=== PATIENT | female | born 1950 | race Caucasian/White ===

== ENCOUNTER 2025-05-19 09:49 | Outpatient (AMB) | payer MEDICARE, SELFPAY ==
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
[2025-05-19 10:03] VITALS: BP 116/74; PULSE 63; RESP 14; TEMP 36.8; O2SAT 97; BMI 34.1
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
== END 2025-05-19 10:50 | disposition home or self-care (01) ==
PROVIDERS: PCP Internal Medicine; Visit Provider Internal Medicine
DX: G57.93 Unspecified mononeuropathy of bilateral lower limbs (principal); M81.0 Age-related osteoporosis without current pathological fracture; M25.512 Pain in left shoulder; G89.29 Other chronic pain

== ENCOUNTER → 2025-05-19 09:49 | Outpatient (BNVA) | payer MEDICARE, SELFPAY | PROVIDERS: PCP Internal Medicine; Visit Provider Internal Medicine | DX: Z13.31 Encounter for screening for depression (principal); Z13.30 Encounter for screening examination for mental health and behavioral disorders, unspecified; G57.93 Unspecified mononeuropathy of bilateral lower limbs; M81.0 Age-related osteoporosis without current pathological fracture; M25.512 Pain in left shoulder; G89.29 Other chronic pain; M54.2 Cervicalgia; Z87.891 Personal history of nicotine dependence | CPT/HCPCS: 96127; 99202 ==

== ENCOUNTER 2025-05-19 11:24 | Outpatient (REF) | payer MEDICARE, SELFPAY ==
[2025-05-19 14:57] LABS: Estimated Average Glucose 111 mg/dL; Hemoglobin A1c % 5.5 % (<6.0)
[2025-05-19 15:02] LABS: Iron 83 mcg/dL (30-160); Magnesium 2.1 mg/dL (1.6-2.6); Percent Iron Saturation 25 % (15-50); Total Iron Binding Capacity 326 mcg/dL (228-428); Unsaturated Iron Binding 243 ug/dL
[2025-05-19 15:34] LABS: Folate 11.1 ng/mL (> or = 4.0); Vitamin B12 324 pg/mL (200-900)
== END 2025-05-19 11:25 | disposition home or self-care (01) ==
LOC: HO.WFDLDS 11:24
PROVIDERS: Visit Provider Internal Medicine
DX: G57.90 Unspecified mononeuropathy of unspecified lower limb (principal); M54.2 Cervicalgia; Z13.1 Encounter for screening for diabetes mellitus
CPT/HCPCS: 36415; 82607; 82746; 83036; 83540; 83735

== ENCOUNTER 2025-06-27 08:57 | Outpatient (AMB) | payer MEDICARE, SELFPAY ==
--- OUTSIDE RECORDS SUMMARY | 2025-06-27 09:10 | XMS_ITS | Encounter Summary ---
Author Organization [facility] Address [address] [place] [address] Care Team Providers Care Internet Marketing Specialist Name Role Phone Physician, No Pcp Primary Care Provider Unavaila ble Encounter Details Date Type Department Care Team (Late st Contact Info) Description 12/17/2024 Lab Requisition [facility] - Main Lab [address] [place] [address] Francisco Nino MD [address] [place] [address] Benign essential microscopic hematuria Social History Tobacco Use Types Packs/Day Years Used Date Smoking Tobacco: Never Assessed Comments Unknown Sex and Gender Information Value Date Recorded Sex Assigned at Not on file Legal Sex Female 3:41 PM EST Gender Identity Not on file Sexual Orientation Not on file documented as of this encounter Plan of Treatment Not on file documented as of this encounter Procedures Procedure Name Priority Date/Time Associated Diagnosis Comments AP OUTSIDE CONSULT Routine 12/16/2024 12 :00 AM EST Benign essential microscopic hematuria documented in this encounter Results * Anatomic pathology outside consult (12/16/2024 12:00 AM EST) Addendum Results of UroVysion fluorescence in situ hybridization (FISH) testing: CEP3: Normal CEP7: Normal CEP17: Normal LSI 9p21: Normal Interpretation: Normal profile, see note Controls stained appropriately. Note: Only two aneuploid cells are present not meeting the 4 cells criteria needed to be considered abnormal. However, these 2 cells have irregular gains of CEP3, CEP7, and CEP17 which is not typical of simply dividing cells. Consideration of urine cytology with concurrent FISH is recommended. The results are intended as a screening device and should be interpreted in association with other clinical and pathological findings. 01/02/2025 5:26 PM [facility] Addendum electronically signed by Tania Cevallos MD on 01/02/2025 at 5:26 PM Final Diagnosis A. Urine, Voided, ([id number]): Atypical urothelial cells Note: Based upon the cytologic findings, UroVysion testing will be performed, the result to follow in an addendum. 01/02/2025 5:26 PM EST [facility] Clinical Information Benign essential microscopic hematuria R31.1 Urine cytology with reflex [facility]Vysion ([facility]) 01/02/2025 5:26 PM [facility] Gross Description A. Urine, Voided, ([id number]): Received is one ThinPrep slide for cytology. 01/02/2025 5:26 PM [facility] Disclaimer Unless otherwise specified, all tissue is 10% NB formalin fixed and paraffin embedded. Technical pathology services provided by [facility] at [address], [place] [address] (CLIA #[id number]/Mary Powell MD, Supervisor Dumping) 01/02/2025 5:26 PM [facility] Tissue Urine specimen from urethra / Unknown 12/16/2024 12/17/2024 3:48 PM EST us Francisco Nino MD LAB PATHOLOGY ORDERABLES Edited Result - Final [facility] [address] [place] [address], documented in this encounter Visit Diagnoses Diagnosis Benign essential microscopic hematuria documented in this encounter Care Teams Internet Marketing Specialist Relationship Specialty Start Date End Date Physician, No Pcp PCP - General 03/03/25 documented as of this encounter
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
--- OUTSIDE RECORDS SUMMARY | 2025-06-27 09:10 | XMS_ITS | Patient Health Record ---
Author Organization [facility] Address [address] [place] [address] Care Team Providers Care Parking Regulation Enforcement Officer Name Role Phone SAMARA ANDRADE, CESAR Primary Care Provider Jo aidaludwinGABRIELA Stearns Unavailable [phone] Allergies No Known Allergies Results Component Value Reference Range Notes Urinalysis Reviewed date:09/17/2024 02:47:49 PM Interpretation: Performing Lab: Notes/Report: NITRITE NEG PH 5.0 PROTEIN TR S.G 1.000 WBC POS GLUCOSE NEG KETONES NEG UROBILINOGEN NEG BILIRUBIN NEG BLOOD MOD Urine Culture, Routine-[id number] Reviewed date:09/19/2024 10:44:59 AM Interpretation: Performing Lab:[facility] [employer], [address], [place], Phone - [phone], Director [facility] Notes/Report: Urine Culture, Routine Final report Result 1 Culture shows less than 10,000 colony forming units of bacteria per milliliter of urine. This colony count is not generally considered to be clinically significant. PDF Report Reviewed date:09/19/2024 08:51:31 AM Interpretation: Performing Lab:[facility] [employer], [address], [place], Phone - [phone], Director - [facility] Notes/Report: Reason For Referral No Information [...] Status Risk Notes Problem Postmenopausal atrophic vaginitis (59919317) Postmenopausal atrophic vaginitis (N95.2) Active confirmed Problem COVID-19 (613287910) COVID-19 (U07.1) Active confirmed Vital Signs Temperature 97.3 degrees Fahrenheit 09/17/2024 Blood pressure diastolic 86 mm Hg 09/17/2024 Height 62.5 in 09/17/2024 Blood pressure systolic 124 mm Hg 09/17/2024 Weight 183 lbs 09/17/2024 BMI 32.93 kg/m2 09/17/2024 Encounters Encounter Location Date Provider Diagnosis [facility] [place] [address] [facility] [address] [address] 09/17/2024 GABRIELA CAGLE Frequency of micturition R35.0 ; Urgency of urination R39.15 and Postmenopausal atrophic vaginitis N95.2 [facility] [place] [address] [facility] [address] [address] 09/24/2024 GABRIELA CAGLE Assessments Encounter Date Diagnosis [...] End Date [employer] MEDICARE PPO [address] [place] [address] [id number] YEE HERNANDEZ Self - patient is the insured Medical (General) History Medical History History ICD Code Hypothyroidism, unspecified E03.9 COVID-19 U07.1 Surgical History Surgery Date(Month/Year) Melanoma 2014 Hospitalization History Reason Date(Month/Year) 1 Vaginal Deivery
--- NOTE | 2025-06-27 09:18 | A.OFFPC_ITS ---
Vital Signs 06/27/25 09:20 Height 5 ft 1.97 in Weight 183 lb 4 oz BMI 33.5 BP 116/82 Blood Pressure Location Rt brachial Position Sitting Respiration 14 Pulse 68 Pulse Source Pulse Oximeter Temp 98.1 F Temp Source Oral Pulse Oximetry (%) 98 Oxygen Delivery Method Room Air Intake Visit Reasons: 3 week cough Intake Note: Cough for three weeks. Ringing in both ears. Xray results. Dishwashing Machine Repairer Required: No Allergies Penicillins Allergy (Mild, Verified 06/27/25 09:19) vaginal yeast infection Tobacco use date assessed: 05/19/25 Dental Screening Dental Screen Date: 05/19/25 HPI HPI Comments History of Present Illness Details The patient is a 75 year old female with a past medical history of hyopthyroid, asthma, low vitamin d, bladder cancer for follow up Hypothyroid-On levothyroxine Asthma-On arnuity. Increase cough. Llxsciljiwlw-SEL-Jrldl 2025. [facility] Wants perhaps another opinion. Recommended reclast Cataract surgery 04/02/2025 right eye. Had V1 shingles. Waiting on left eye surgery-scheduled for the end of Jul. She had post operative vertigo, vision changes which have since resolved. MSK: Reports bilateral le neuropathy legs and foot. Unsure of labs. Low back sometimes painful but no acute injury etc. Chronic neck pain, spasm. Recent worsening left shoulder pain, Urologic-Follows with Dr Nino. Every 3 months follow up at present. She had one year history of urinary urgency prior to testing for baldder cancer. She was positive. She has cystoscopy with antineoplastic agent. BH: Relocated from [place]. one year later. Lost two sisters, had to put her dog down. Extremely stress, anxious-wants to start the prozac sent but wants to wait until after left eye surgery. She had an episode of vertigo and vision changes when she tried zoloft in the past which was similar to her recent post operative complications from eye surgery Mammo-05/2024 Colonoscopy-01/18/2022 ROS see HPI PHYSICAL EXAM: GENERAL: Alert and oriented x 3. NAD EYES: EOMI. Anicteric. HENT: Moist mucous membranes. No scleral icterus. No cervical lymphadenopathy. LUNGS: Clear to auscultation bilaterally. CARDIOVASCULAR: Regular rate and rhythm. No murmur. No JVD. ABDOMEN: Soft, non-tender +bs EXTREMITIES: No edema. Non-tender. SKIN: No rashes or lesions. Warm. NEUROLOGIC: No focal neurological deficits. CN II-XII grossly intact PSYCHIATRIC: Cooperative. Appropriate mood and affect [facility] Surgical History Hx of cholecystectomy Family History Mother Lung cancer Depression Sister Depression COPD (chronic obstructive pulmonary disease) Diabetes Brother Heart attack Father Alcohol abuse Cardiovascular disease ESRD (end stage renal disease) HTN (hypertension) Other Chronic mental illness Social History Housing: House Alcohol intake: current Patient Tobacco Use Status: Former Tobacco user Cigarette Packs Per Day: 1 Years Smoked: 15 e-Cigarette/Vaping Use: Never Used Second Hand Smoke Exposure: Yes (as a child) Cognitive needs: No Hearing needs: No Vision needs: Yes (glasses, just had cataracts) Questionnaire Thrive Questionnaire Date Thrive assessed: 05/19/25 I am a: Patient What is your living situation today?: I have a steady place to live Within the past 12 months, did the food you bought not last and you didn't have the money to get more?: Never true Within the past 12 months, did you worry whether your food would run out before you got money to buy more?: Never true Do you have trouble paying for medicines?: No Do you have trouble getting transportation to medical appointments?: No Do you have trouble paying your heating and electricity bill?: No Do you have trouble taking care of your child, family member or friend?: No Do you have trouble with day-to-day activities such as bathing, preparing meals, shopping, managing finances, etc.?: No Are you currently unemployed and looking for a job?: No Are you interested in more education?: No Please select the resources that you would like help with: None Currently or been in a relationship where the following occur: Controlled Emotionally THRIVE Score: 1 AUDIT C Alcohol Use Questionnaire (AUDIT-C) 2. How many drinks containing alcohol do you have on a typical day when you are drinking?: 1 or 2 3. How often do you have six or more drinks on one occasion?: Never Total Score: 0 TIGRE-7 AMB Questionnaire TIGRE-7 Date TIGRE - 7 assessed: 05/19/25 Source: Developed by Drs. Nael Elias, Lilo De La Garza, Jaskaran Bryson and colleagues, with an educational russell from [employer]. Physical exam (Primary Care) Vital Signs: Last Vital Signs Temp 98.1 F 06/27/25 09:20 Pulse 68 06/27/25 09:20 Resp 14 06/27/25 09:20 BP 116/82 06/27/25 09:20 Pulse Ox 98 06/27/25 09:20 Oxygen Delivery Method Room Air 06/27/25 09:20 BMI result Body Mass Index 33.5 Tobacco/Smoking Status: Tobacco use Status Tobacco use date assessed 05/19/25 06/27/25 09:24 Patient Tobacco Use Status Former Tobacco user 06/27/25 09:24 e-Cigarette/Vaping Use Never Used 06/27/25 09:24 Thrive Assessment: Date of Thrive Assessment Date Thrive assessed 05/19/25 06/27/25 09:24 Currently or been in a relationship where the following occur: Controlled Emotionally Coding Level of Care Code Est Pt Level 4 (18749) Diagnoses Neck pain M54.2 Chronic left shoulder pain M25.512; G89.29 Chronicity: chronic 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 Laterality: bilateral Recurrent major depressive disorder, in partial remission F33.41 Depression Type: major depressive disorder Major depression recurrence: recurrent Active/Remission status: in partial remission Assessment & Plan Assessment & Plan (1) Neck pain: Code(s): M54.2 - Cervicalgia Category: Medical (2) Left shoulder pain: Code(s): M25.512 - Pain in left shoulder Category: Medical Qualifiers: Chronicity: chronic Qualified Code(s): M25.512 - Pain in left shoulder; G89.29 - Other chronic pain (3) Lower extremity neuropathy: Code(s): G57.90 - Unspecified mononeuropathy of unspecified lower limb Category: Medical Qualifiers: Laterality: bilateral Qualified Code(s): G57.93 - Unspecified mononeuropathy of bilateral lower limbs (4) Depression: Code(s): F32.A - Depression, unspecified Qualifiers: Depression Type: major depressive disorder Major depression recurrence: recurrent Active/Remission status: in partial remission Qualified Code(s): F33.41 - Major depressive disorder, recurrent, in partial remission Plan Depression-continue therapy. She will start prozac following eye surgery Asthma-continue current medications. Azithromycin sent hypothyroid-continue levothyroxine Orders: Referrals Orthopedics Referral G89.29 - Other chronic pain, M25.512 - Pain in left shoulder, M54.2 - Cervicalgia Podiatry Referral M79.673 - Pain in unspecified foot Medications: New azithromycin For 250 mg dose pack: take 500 mg today (day 1), then 250 mg for 4 days (days 2-5) PO 6 tabs 0RF azithromycin For 250 mg dose pack: take 500 mg today (day 1), then 250 mg for 4 days (days 2-5) PO 6 tabs 0RF
[2025-06-27 09:20] VITALS: BP 116/82; PULSE 68; RESP 14; TEMP 36.7; O2SAT 98; BMI 33.5
== END 2025-06-27 09:59 | disposition home or self-care (01) ==
LOC: HO.HMCFM 08:58
PROVIDERS: PCP Internal Medicine; Visit Provider Internal Medicine
DX: M54.2 Cervicalgia (principal); M25.512 Pain in left shoulder; G89.29 Other chronic pain; G57.93 Unspecified mononeuropathy of bilateral lower limbs; F33.41 Major depressive disorder, recurrent, in partial remission

== ENCOUNTER → 2025-06-27 08:57 | Outpatient (BNVA) | payer MEDICARE, SELFPAY | PROVIDERS: PCP Internal Medicine; Visit Provider Internal Medicine | DX: M54.2 Cervicalgia (principal); M25.512 Pain in left shoulder; G89.29 Other chronic pain; G57.93 Unspecified mononeuropathy of bilateral lower limbs; F33.41 Major depressive disorder, recurrent, in partial remission | CPT/HCPCS: 99212 ==

== ENCOUNTER 2025-07-18 12:45 | Outpatient (REF) | payer MEDICARE, SELFPAY ==
[2025-07-18 18:46] LABS: Alanine Aminotransferase 11 U/L (0-31); Albumin Level 4.2 g/dL (3.5-5.0); Alkaline Phosphatase 77 U/L (39-117); Anion Gap 12 (12-20); Aspartate Amino Transferase 18 U/L (5-31); Blood Urea Nitrogen 13 mg/dL (9-16); Calcium 9.0 mg/dL (8.4-10.2); Carbon Dioxide 27 mmol/L (22-29); Chloride 101 mmol/L (96-108); Estimated Glomerular Filt Rate > 60; Potassium 4.6 mmol/L (3.3-5.1); Sodium 135 mmol/L (135-145); Total Protein 6.9 g/dL (6.5-8.0)
[2025-07-18 18:57] LABS: Folate 9.3 ng/mL (> or = 4.0); Vitamin B12 705 pg/mL (200-900)
== END 2025-07-18 12:46 | disposition home or self-care (01) ==
LOC: HO.WFDLDS 12:45
PROVIDERS: PCP Internal Medicine; Visit Provider Nurse Practitioner Family
DX: H93.13 Tinnitus, bilateral (principal); F33.9 Major depressive disorder, recurrent, unspecified; F33.0 Major depressive disorder, recurrent, mild; J45.20 Mild intermittent asthma, uncomplicated; M81.0 Age-related osteoporosis without current pathological fracture; E03.9 Hypothyroidism, unspecified; Z79.51 Long term (current) use of inhaled steroids; Z79.890 Hormone replacement therapy; Z79.899 Other long term (current) drug therapy
CPT/HCPCS: 36415; 80053; 82306; 82607; 82746; 84443; 96160; 99212

== ENCOUNTER 2025-07-18 12:45 | Outpatient (AMB) | payer MEDICARE, SELFPAY ==
--- NOTE | 2025-07-18 12:51 | A.OFFPC_ITS ---
Vital Signs 07/18/25 12:56 Height 5 ft 1.97 in Weight 187 lb BMI 34.2 BP 134/80 Blood Pressure Location Lt brachial Position Sitting Respiration 14 Pulse 63 Pulse Source Pulse Oximeter Temp 97.8 F Temp Source Temporal Artery Scan Pulse Oximetry (%) 97 Oxygen Delivery Method Room Air Intake Visit Reasons: Ringing in the ears Intake Note: Shabnam presents in the office today for bilateral ringing in the ears. Allergies Penicillins Allergy (Mild, Verified 07/18/25 13:43) vaginal yeast infection Medication List - Last Reconciled 07/18/25 by Karine Baeza, COMMERCIAL ENERGY AUDITOR-BC Arnuity Ellipta 100 mcg/actuation (fluticasone furoate) 1 inh inhalation DAILY NS cholecalciferol (vitamin D3) 50 mcg PO DAILY fluoxetine (Prozac) 10 mg PO DAILY levothyroxine 50 mcg PO DAILY Ventolin HFA 90 mcg/actuation (albuterol sulfate) 2 puffs inhalation Q6H PRN NS vitamin B complex 1 tab PO DAILY Tobacco use date assessed: 07/18/25 Fall risk assessment: No Falls in past year Last assessed Fall Risk: 07/18/25 Dental Screening Dental Screen Date: 07/18/25 Did you have a dental visit in the last 12 months?: Yes Did you have a dental problem in the last 6 months where you did not have access to dental care?: No Was dental information given to patient?: Patient has dentist HPI HPI Comments History of Present Illness Details 75 year old female with hyopthyroid, ast hma, low vitamin d, bladder cancer History of Present Illness - The patient is a 75-year-old female pr esenting with tinnitus and chronic cough. - Tinnitus for approximately two months, with increased pressure in bilat ears noted; both ears affected. - Cough persisting for several months, n oted especially at night, non- productive. Does not think this is asthma related, feels like PND - Recent cataract surgery followed by daniel ngles behind the R eye, leading to visual disturbances and dizziness. This has affected her mood. - On Prozac for depression since two wee ks with no noted improvement. Denies SI/HI. Does not want to increase, fears side effects. - Reports fatigue, sleep disturbances; a ssociated with tinnitus and vision issues. - Vitamin D3 supplementation due to oste oporosis; not routinely taking NSAIDs, but has tried meloxicam recently. - Hypothyroid, no recent thyroid labs av ail. - Labs 04/2025 reviewed. Review of Systems - HEENT: Reports tinnitus, visual distur bances, postnasal drip. Denies hearing loss. - Respiratory: Reports chronic cough, es pecially at night. - Neurological: Reports dizziness. - Psychiatric: Reports depression, fatig ue, disturbed sleep. - Endocrine: Denies recent thyroid funct ion test. - General: Reports feeling generally unw ell. Physical Exam General: Well developed, well nourished, appears stated age Head: Normocephalic, atraumatic. Eyes: Pupils are equal, round and reactive to light and accommodation. Conjunctivae are clear. Ears: TM intact, scant clouding noted, EAC bilat, hearing normal Nose: Turbinates pale and edematous, no sinus tenderness Pharynx: Uvula midline, no exudate or thrush, mild PND, no ac adenopathy Lungs: Clear to auscultation bilaterally. No rales, rhonchi or wheeze noted. Good air flow in all cavazos. Heart: Regular rate and rhythm. No murmurs, click, rubs or gallops are noted. Psych: Mood and affect appropriate, Tearful at times. Results Pending Discussion Notes I discussed with the patient that the tinnitus may be contributed by several factors, including her recent use of meloxicam, although this started after the tinnitus began. I recommended a hearing exam and the patient should expect contact from the medical center to arrange an appointment. I advised checking blood work to evaluate thyroid function, vitamin D, and B12 levels, among others, to assess contributing factors for the patient?s symptoms. We discussed starting a nasal spray, Flonase, to address any possible fluid in the ears or postnasal drip. I encouraged continued use of Prozac, guiding her on the typical timeline of 6-8 weeks for therapeutic effects. A follow-up in six weeks has been recommended, and the patient preferred to continue her care at [facility] for pharmaceutical needs. I reminded the patient of utilizing the patient portal for lab results and questions. Patient was given time to ask questions. All questions were answered to their satisfaction. Assessment and Plan 1. Tinnitus - Hearing exam recommended. - Start Flonase nasal spray. - Monitor effects of meloxicam. Reports she will only take this for 2 weeks then stop 2. Chronic Cough - Use Flonase for postnasal drip. cont i nhalers 3. Depression - Continue Prozac; reassess in six weeks . 5. Osteoporosis/ Hypothyroid - Continue vitamin D3. - Lab tests for thyroid and vitamin stat us. Patient Instructions - Use Flonase nasal spray twice a day, m orning and evening. - Expect a call to schedule a hearing te st. - Continue Prozac; be patient as it may take 6-8 weeks to feel the effects. - Get lab work done today for thyroid an d vitamin levels. - Follow up in six weeks or sooner if pr oblems arise. - Contact immediately if any severe symp toms occur. Consent Patient was informed and verbally consented to the use of an ambient scribe for clinic note documentation during this visit. Total time spent caring for the patient today was 41 minutes. This includes time spent before the visit reviewing the chart, time spent during the visit, and time spent after the visit on documentation, reviewing laboratory results, diagnostic imaging, medications, performing a medically necessary evaluation, counseling on diagnoses, care coordination, ordering appropriate tests, ordering appropriate medications, review of tests performed by other providers, reporting test results with the patient, communication with other healthcare providers. [facility] Surgical History Hx of cholecystectomy Family History Mother Lung cancer Depression Sister Depression COPD (chronic obstructive pulmonary disease) Diabetes Brother Heart attack Father Alcohol abuse Cardiovascular disease ESRD (end stage renal disease) HTN (hypertension) Other Chronic mental illness Social History (Updated 07/18/25 @ 12:56 by Tania Burger MA) Housing: House Alcohol intake: current Patient Tobacco Use Status: Former Tobacco user Cigarette Packs Per Day: 1 Years Smoked: 15 e-Cigarette/Vaping Use: Never Used Second Hand Smoke Exposure: Yes (as a child) service: No Current occupational status: retired Current occupational exposures/hazards: No Cognitive needs: No Hearing needs: No Vision needs: Yes (glasses, just had cataracts) Questionnaire Thrive Questionnaire Date Thrive assessed: 05/19/25 I am a: Patient What is your living situation today?: I have a steady place to live Within the past 12 months, did the food you bought not last and you didn't have the money to get more?: Never true Within the past 12 months, did you worry whether your food would run out before you got money to buy more?: Never true Do you have trouble paying for medicines?: No Do you have trouble getting transportation to medical appointments?: No Do you have trouble paying your heating and electricity bill?: No Do you have trouble taking care of your child, family member or friend?: No Do you have trouble with day-to-day activities such as bathing, preparing meals, shopping, managing finances, etc.?: No Are you currently unemployed and looking for a job?: No Are you interested in more education?: No Please select the resources that you would like help with: None Currently or been in a relationship where the following occur: Controlled Emotionally THRIVE Score: 1 TIGRE-7 AMB Questionnaire TIGRE-7 Date TIGRE - 7 assessed: 05/19/25 Source: Developed by Drs. Nael Elias, Lilo De La Garza, Jaskaran Bryson and colleagues, with an educational russell from [employer]. ACT Questionnaire In the past 4 weeks, how much of the time did your asthma keep you from getting as much done at work, school or at home?: None of the time During the past 4 weeks, how often have you had shortness of breath?: Not at all During the past 4 weeks, how often did your asthma symptoms wake you up at night or earlier than usual in the morning?: Not at all During the past 4 weeks, how often have you had to use your rescue inhaler or nebulizer medication?: Not at all How would you rate your asthma control during the past 4 weeks?: Completely controlled ACT Interpretation: Negative Score: 25 Physical exam (Primary Care) Vital Signs: Last Vital Signs Temp 97.8 F 07/18/25 12:56 Pulse 63 07/18/25 12:56 Resp 14 07/18/25 12:56 BP 134/80 07/18/25 12:56 Pulse Ox 97 07/18/25 12:56 Oxygen Delivery Method Room Air 07/18/25 12:56 BMI result Body Mass Index 34.2 Tobacco/Smoking Status: Tobacco use Status Tobacco use date assessed 07/18/25 07/18/25 12:59 Patient Tobacco Use Status Former Tobacco user 07/18/25 12:59 e-Cigarette/Vaping Use Never Used 07/18/25 12:59 Thrive Assessment: Date of Thrive Assessment Date Thrive assessed 05/19/25 07/18/25 12:59 Currently or been in a relationship where the following occur: Controlled Emotionally Coding Level of Care Code Est Pt Level 5 (61591) Complex EM visit Add On G2211 Diagnoses Tinnitus, bilateral H93.13 Mild episode of recurrent major depressive disorder F33.0 Major depression episode severity: mild Acquired hypothyroidism E03.9 Hypothyroidism type: acquired Mild intermittent asthma in adult without complication J45.20 Osteoporosis, unspecified osteoporosis type, unspecified pathological fracture presence M81.0 Osteoporosis type: unspecified Presence of current pathological fracture: unspecified Additional Codes Asthma Control Questionnaire - ACT Interpretation: Negative ([id number]) Assessment & Plan Assessment & Plan (1) Tinnitus, bilateral: Code(s): H93.13 - Tinnitus, bilateral Category: Medical (2) MDD (major depressive disorder), recurrent episode: Code(s): F33.9 - Major depressive disorder, recurrent, unspecified Category: Medical Qualifiers: Major depression episode severity: mild Qualified Code(s): F33.0 - Major depressive disorder, recurrent, mild (3) Hypothyroid: Code(s): E03.9 - Hypothyroidism, unspecified Category: Medical Qualifiers: Hypothyroidism type: acquired Qualified Code(s): E03.9 - Hypothyroidism, unspecified (4) Mild intermittent asthma in adult without complication: Code(s): J45.20 - Mild intermittent asthma, uncomplicated Category: Medical (5) Osteoporosis: Code(s): M81.0 - Age-related osteoporosis without current pathological fracture Category: Medical Qualifiers: Osteoporosis type: unspecified Presence of current pathological fracture: unspecified Qualified Code(s): M81.0 - Age-related osteoporosis without current pathological fracture Plan . Orders: Orders Vitamin B12 and Folate Today E03.9 - Hypothyroidism, unspecified, F33.9 - Major depressive disorder, recurrent, unspecified, H93.13 - Tinnitus, bilateral, M81.0 - Age-related osteoporosis without current pathological fracture Comprehensive Met. Panel Today E03.9 - Hypothyroidism, unspecified, F33.9 - Major depressive disorder, recurrent, unspecified, H93.13 - Tinnitus, bilateral, M81.0 - Age-related osteoporosis without current pathological fracture TSH reflex Free T4 Today E03.9 - Hypothyroidism, unspecified, F33.9 - Major depressive disorder, recurrent, unspecified, H93.13 - Tinnitus, bilateral, M81.0 - Age-related osteoporosis without current pathological fracture Vitamin D 25-OH Total Today E03.9 - Hypothyroidism, unspecified, F33.9 - Major depressive disorder, recurrent, unspecified, H93.13 - Tinnitus, bilateral, M81.0 - Age-related osteoporosis without current pathological fracture Medications: New meloxicam 7.5 mg PO DAILY 14 tabs 0RF fluticasone propionate 50 mcg/actuation administer into each nostril 1 spray intranasal BID 16 grams 12RF fluticasone propionate 50 mcg/actuation administer into each nostril 1 spray intranasal BID 16 grams 12RF Patient Instructions: Patient Instructions - Use Flonase nasal spray twice a day, morning and evening. - Expect a call to schedule a hearing test. - Continue Prozac; be patient as it may take 6-8 weeks to feel the effects. - Get lab work done today for thyroid and vitamin levels. - Follow up in six weeks or sooner if problems arise. - Contact immediately if any severe symptoms occur.
[2025-07-18 12:56] VITALS: BP 134/80; PULSE 63; RESP 14; TEMP 36.6; O2SAT 97; BMI 34.2
--- OUTSIDE RECORDS SUMMARY | 2025-07-18 13:14 | XMS_ITS | Encounter Summary ---
Author Organization [facility] Address [address] [place] [address] Care Team Providers Care Title I Assistant Name Role Phone Physician, No Pcp Primary Care Provider Unavaila ble Encounter Details Date Type Department Care Team (Late st Contact Info) Description 02/05/2025 Lab Requisition [facility] - Main Lab [address] [facility] [place] [address] Francisco Nino MD [address] [facility] [address] [place] [address] Gross hematuria Social History Tobacco Use Types Packs/Day [...] Associated Diagnosis Comments AP OUTSIDE CONSULT Routine 01/30/2025 12 :00 AM EDT Gross hematuria documented in this encounter Results * Anatomic pathology outside consult (01/30/2025 12:00 AM EDT) Final Diagnosis A. Urine, Voided, ([id number]): -ATYPICAL UROTHELIAL CELLS SUSPICIOUS FOR HIGH-GRADE UROTHELIAL CARCINOMA.. Results of UroVysion fluorescence in situ hybridization (FISH) testing: CEP3: Normal CEP7: Normal CEP17: Normal LSI 9p21: Normal Interpretation: Normal profile Controls stained appropriately. Note: The results are intended as a screening device and should be interpreted in association with other clinical and pathological findings. 02/11/2025 5:[address] [facility] Clinical Information Gross hematuria R31.0 Urine Cytology/FISH (now) 02/11/2025 5:49 PM EDT [facility] Gross Description A. Urine, Voided, ([id number]): Received one ThinPrep slide for cytology and one ThinPrep slide for UroVysion FISH 02/11/2025 5:49 PM EDT [facility] Disclaimer Unless otherwise specified, all tissue is 10% NB formalin fixed and paraffin embedded. Technical pathology services provided by [facility] [address] [facility] [address] [place] [address] (CLIA #[id number]/Mary Powell MD, Window Systems Administrator) 02/11/2025 5:49 PM EDT [facility] Tissue Urine specimen from urethra / Unknown 01/30/2025 02/05/2025 11:59 AM EDT us Francisco Nino MD LAB PATHOLOGY ORDERABLES Final Result [facility] [address] [place] [address], documented in this encounter Visit Diagnoses Diagnosis Gross hematuria documented in this encounter Care Teams Title I Assistant Relationship Specialty Start Date End Date Physician, No Pcp PCP - General 03/03/25 documented as of this encounter
--- OUTSIDE RECORDS SUMMARY | 2025-07-18 13:14 | XMS_ITS | Continuity of Care Document ---
Author Organization [facility] Address [address] [facility] [address] [place] [address] Phone [phone] Care Team Providers Care Veterans Contact Representative Name Role Phone Dada Giang MD Care Team Information Rec eiver [phone] Problems Active Problems Provider Date Osteoporosis PAULETTE [...] Medications SIG Qnty Indications Ordering Provider Date [id number] Tablets Francisco Nino MD Arnuity Brzidfm473bln/Act Aerosol Dada Giang MD [id number] Tablets Unknown Levothyroxine Eycryd92gyh Tablets Dada Giang MD Vital Signs Date [...] D deficiency has been defined by the [place] of [employer] and an Endocrine Society practice guideline as a level of serum 25-OH vitamin D less than 20 ng/mL (1,2). The Endocrine Society went on to further define vitamin D insufficiency as a level between 21 and 29 ng/mL (2). 1. IOM ([place] of [employer]). 2010. Dietary reference intakes for [...] measured NTx value is <or=38 nM BCE/mM BARREL BRIDGE ASSEMBLER, or NTx has decreased >or=30% from baseline.[1] [...]
--- OUTSIDE RECORDS SUMMARY | 2025-07-18 13:14 | XMS_ITS | Patient Health Record ---
Author Organization [facility] Address [address] [facility] [facility] [address] [place] [address] Care Team Providers Care Mold Burner Name Role Phone SAMARA ANDRADE, CESAR Primary Care Provider Jo aidaludwinGABRIELA Stearns Unavailable [phone] Allergies No Known Allergies Results Component Value Reference Range Notes PDF Report Reviewed date:09/19/2024 08:51:31 AM Interpretation: Performing Lab:[facility], [address], [address], [place], Phone - [phone], [facility] Notes/Report: Urine Culture, Routine-[id number] Reviewed date:09/19/2024 10:44:59 AM Interpretation: Performing Lab:[facility], [address], [address], [place], Phone - [phone], Director [facility] Notes/Report: Urine Culture, Routine Final report Result 1 Culture shows less than 10,000 colony forming units of bacteria per milliliter of urine. This colony count is not generally considered to be clinically significant. Urinalysis Reviewed date:09/17/2024 02:47:49 PM Interpretation: Performing Lab: Notes/Report: NITRITE NEG PH 5.0 PROTEIN TR S.G 1.000 WBC POS GLUCOSE NEG KETONES NEG UROBILINOGEN NEG BILIRUBIN NEG BLOOD MOD Reason For Referral No Information Medications Medication [...] Status Risk Notes Problem Postmenopausal atrophic vaginitis (N95.2) Active confirmed Problem COVID-19 ([id number]) COVID-19 (U07.1) Active confirmed Vital Signs Temperature 97.3 degrees Fahrenheit 09/17/2024 Blood pressure diastolic 86 mm Hg 09/17/2024 Height 62.5 in 09/17/2024 Blood pressure systolic 124 mm Hg 09/17/2024 Weight 183 lbs 09/17/2024 BMI 32.93 kg/m2 09/17/2024 Encounters Encounter Location Date Provider Diagnosis [facility] [address] [address] 09/17/2024 GABRIELA CAGLE Frequency of micturition R35.0 ; Urgency of urination R39.15 and Postmenopausal atrophic vaginitis N95.2 [facility] [address] [address] 09/24/2024 GABRIELA CAGLE Assessments Encounter Date Diagnosis [...] End Date BCBS MEDICARE PPO [address] [place] [address] [id number] YEE HERNANDEZ Self - patient is the insured Medical (General) History Medical History History ICD Code Hypothyroidism, unspecified E03.9 COVID-19 U07.1 Surgical History Surgery Date(Month/Year) Melanoma 2014 Hospitalization History Reason Date(Month/Year) 1 Vaginal Deivery
--- OUTSIDE RECORDS SUMMARY | 2025-07-18 13:14 | XMS_ITS | Encounter Summary ---
Author Organization [facility] Address [address] [place] [address] Care Team Providers Care Communication And Outreach Manager Name Role Phone Physician, No Pcp Primary Care Provider Unavaila ble Encounter Details Date Type Department Care Team (Late st Contact Info) Description 12/17/2024 Lab Requisition [facility] - Main Lab [address] [facility] [place] [address] Francisco Nino MD [address] [facility] [address] [place] [address] Benign essential microscopic hematuria Social [...] clinical and pathological findings. 01/02/2025 5:26 PM [facility] Addendum electronically signed by Tania Cevallos MD on 01/02/2025 at 5:26 PM Final Diagnosis A. Urine, Voided, ([id number]): Atypical urothelial cells Note: Based upon the cytologic findings, UroVysion testing will be performed, the result to follow in an addendum. 01/02/2025 5:26 PM EST [facility] Clinical Information Benign essential microscopic hematuria R31.1 Urine cytology with reflex UroVysion ([facility]) 01/02/2025 5:26 PM [facility] Gross Description A. Urine, Voided, ([id number]): Received is one ThinPrep slide for cytology. 01/02/2025 5:26 PM [facility] Disclaimer Unless otherwise specified, all tissue is 10% NB formalin fixed and paraffin embedded. Technical pathology services provided by [facility] at [address] [place] [address] (CLIA #[id number]/Mary Powell MD, Carton Forming Machine Tender) 01/02/2025 5:26 PM [facility] Tissue Urine specimen from urethra / Unknown 12/16/2024 12/17/2024 3:48 PM EST us Francisco Nino MD LAB PATHOLOGY ORDERABLES Edited Result - Final [facility] [address] [place] [address], documented in this encounter Visit Diagnoses Diagnosis Benign essential microscopic hematuria documented in this encounter Care Teams Communication And Outreach Manager Relationship Specialty Start Date End Date Physician, No Pcp PCP - General 03/03/25 documented as of this encounter
--- OUTSIDE RECORDS SUMMARY | 2025-07-18 13:14 | XMS_ITS | Clinical Summary ---
Author Organization [facility] Address [address] [address] Phone Care Team Providers Care Sorting Machine Operator Name Role Phone Dada Montesinos MD Primary Care Provider [phone] Allergies Active Allergy Reactions Criticality Noted Date Comments Penicillin 08/13/2024 Yeast Infections Medications levothyroxine (SYNTHROID, LEVOTHROID) 50 MCG tablet Take by mouth. 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 Not on flo e 08/14/2024 Are you concerned about learning? Not on file 08/14/2024 No 08/14/2024 No 08/14/2024 Digital Access Answer Date Recorded No 08/14/2024 No 08/14/2024 Reliable internet access at home? Not on file 08/14/2024 Device with a working camera? Not on file Comments Unknown Sex and Gender Information Value Date Recorded Sex Assigned at Not on file Legal Sex Female 4:40 PM EDT Gender Identity Not on file Sexual Orientation Not on file Last Filed Vital Signs Vital Sign Reading Time Taken Comments Blood Pressure 120/82 08/13/2024 5:08 PM EDT Pulse 67 08/13/2024 5:08 PM EDT Temperature 36.8 C (98.2 F) 08/13/2024 5:08 PM EDT Respiratory Rate 16 08/13/2024 5:08 PM EDT Oxygen Saturation 97% 08/13/2024 5:08 PM EDT Inhaled Oxygen Concentration - - Weight - - Height - - Body Mass Index - - Plan of Treatment Health Maintenance Due Date Last Done Comments Adult Td,Tdap Booster 1950 LIPID PANEL 1950 TSH LEVEL 1951 DEPRESSION SCREENING 1963 SMOKING Hx and SMOKELESS TOB ACCO SCREENING 02/04/1964 HEPATITIS C SCREENING 1969 MAMMOGRAM 1991 COLOGUARD 02/04/1996 COLONOSCOPY 02/04/1996 COLORECTAL CANCER SCREENING 02/04/1996 FIT TEST 02/04/1996 FOBT 02/04/1996 SIGMOIDOSCOPY 02/04/1996 VIRTUAL COLONOSCOPY 02/04/1996 ZOSTER VACCINES (1 of 2) 2001 RSV VACCINE (1 - Risk 60-74 years 1-dose series) 2011 OSTEOPOROSIS SCREENING INITI AL (ONE-TIME) 02/04/2016 PNEUMOCOCCAL VACCINES (50+ y ears) (2 of 2 - PCV) 08/31/2021 08/31/2020 COVID-19 VACCINE (1 - 2023-2 5 season) 2024 BLOOD PRESSURE 02/10/2025 08/13/2024 HEPATITIS A VACCINES Aged Out No long er eligible based on patient's age to complete this topic HIB VACCINES Aged Out No longer eligi ble based on patient's age to complete this topic MENINGOCOCCAL VACCINES (ACWY) Aged Out No longer eligible based on patient's age to complete this topic MENINGOCOCCAL VACCINES (B) Aged Out N o longer eligible based on patient's age to complete this topic Medical Devices Not on file Insurance BLUE [place]OSS [place] MEDICARE PPO BLUE REPLACEMENT MEDICARE PPO BLUE REPLACEMENT MEDICARE PPO BLUE [place] [address] [place] [address] MEDICARE PPO [place]UE [place] [address] [place] [address] MEDICARE PPO BLUE REPLACEMENT Care Teams Sorting Machine Operator Relationship Specialty Start Date End Date Dada Montesinos MD [address] [place] [id number] PCP - General Internal Medicine 08/13/24 Additional Source Comments The information contained in this document represents components of the legal health record. It is not the complete legal health record.[facility]
--- OUTSIDE RECORDS SUMMARY | 2025-07-18 13:14 | XMS_ITS | Encounter Summary ---
Author Organization [facility] Address [address] [place] [address] Care Team Providers Care Mechanical Engineering Draftsperson Name Role Phone Physician, No Pcp Primary Care Provider Unavaila ble Encounter Details Date Type Department Care Team (Late st Contact Info) Description 06/12/2025 Lab Requisition [facility] - Main Lab [address] [facility] [place] [address] Francisco Nino MD [address] [facility] [address] [place] [address] Personal history of malignant neoplasm of bladder Social History Tobacco Use Types Packs/Day Years [...] Procedure Name Priority Date/Time Associated Diagnosis Comments NON-GYNECOLOGIC CYTOLOGY Routine 06/05/2025 12:00 AM EDT Personal history of malignant neoplasm of bladder documented in this encounter Results * Non-gynecologic cytology (06/05/2025 12:00 AM EDT) Final Diagnosis A. Urine, Voided, [id number]: ATYPICAL UROTHELIAL CELLS PRESENT. Results of UroVysion fluorescence in situ hybridization (FISH) testing: CEP3: Normal CEP7: Normal CEP17: Normal LSI 9p21: Normal Interpretation: Normal profile Controls stained appropriately. Note: The results are intended as a screening device and should be interpreted in association with other clinical and pathological findings. 06/24/2025 11:02 AM EDT [facility] Specimen A Adequacy Satisfactory for evaluation 06/24/2025 11:02 AM EDT [facility] Clinical Information History of bladder neoplasm (malignant) Z85.51 Urine Cytology/FISH (now) 06/24/2025 11:02 AM EDT [facility] Gross Description A. Urine, Voided, [id number]: Received one ThinPrep slide for cytology and one ThinPrep slide for UroVysion FISH 06/24/2025 11:02 AM EDT [facility] Disclaimer Unless otherwise specified, all tissue is 10% NB formalin fixed and paraffin embedded. Technical pathology services provided by [facility] at [address] [place] [address] [address], [place] [address] (CLIA #[id number]/Mary Powell MD, Electrodynamicist) 06/24/2025 11:02 AM EDT [facility] Urine Urine specimen from urethra / Unknown 06/05/2025 06/12/2025 1:20 PM EDT us Francisco Nino MD LAB CYTOLOGY ORDERABLES F inal Result [facility] [address] [place] [address], documented in this encounter Visit Diagnoses Diagnosis Personal history of malignant neoplasm of bladder documented in this encounter Care Teams Mechanical Engineering Draftsperson Relationship Specialty Start Date End Date Physician, No Pcp PCP - General 03/03/25 documented as of this encounter
--- OUTSIDE RECORDS SUMMARY | 2025-07-18 13:14 | XMS_ITS | Clinical Summary ---
Author Organization 299 [facility] Address [address] [place] [address] Phone Care Team Providers Care Industrial X Ray Operator Name Role Phone Physician, No Pcp Primary Care Provider Unavaila ble Encounters Date Type Department Care Team Description 06/12/2025 Lab Requisition [facility] - Main Lab [address] [place] [address] Francisco Nino MD Personal history of malignant neoplasm of bladder from Last 3 Months Social History Tobacco Use Types Packs/Day Years Used Date Smoking Tobacco: Never Assessed Comments Unknown Sex and Gender Information Value Date Recorded Sex Assigned at Not on file Legal Sex Female 3:41 PM EST Gender Identity Not on file Sexual Orientation Not on file Plan of Treatment Health Maintenance Due Date Last Done Comments Breast Cancer Screening 1950 DTaP,Tdap,and Td Vaccines (1 - Tdap) 1970 Pneumococcal Vaccine: 50+ Ye ars (1 of 1 - PCV) 2001 Zoster Vaccines (1 of 2) 2001 COVID-19 Vaccine ( - 2023-2 5 season) 2024 Depression Screening 11/20/2024 Colorectal Cancer Screening: Colonoscopy 12/18/2024 Falls Risk Assessment 12/18/2024 Hepatitis C Screening 12/18/2024 Medicare Annual Wellness Visit 12/18/2024 Osteoporosis Screening (Bone Density Screening) 12/18/2024 Social Influencers of Health Screening 12/18/2024 Influenza Vaccine (#1) 2025 RSV Immunization Adult Patie nts (1 - 1-dose 75+ series) 2026 HIB Vaccines Aged Out No longer eligi ble based on patient's age to complete this topic HPV Vaccines Aged Out No longer eligi ble based on patient's age to complete this topic Hepatitis A Vaccines Aged Out No long er eligible based on patient's age to complete this topic Hepatitis B Vaccines Aged Out No long er eligible based on patient's age to complete this topic IPV Vaccines Aged Out No longer eligi ble based on patient's age to complete this topic MMR Vaccines Aged Out No longer eligi ble based on patient's age to complete this topic Meningococcal ACWY Vaccine Aged Out N o longer eligible based on patient's age to complete this topic Meningococcal B Vaccine Aged Out No l onger eligible based on patient's age to complete this topic RSV Immunization Patients Un kash 20 months Aged Out No longer eligible b ased on patient's age to complete this topic Varicella Vaccines Aged Out No longer eligible based on patient's age to complete this topic Procedures Procedure Name Priority Date/Time Associated Diagnosis Comments NON-GYNECOLOGIC CYTOLOGY Routine 06/05/2025 12:00 AM EDT Personal history of malignant neoplasm of bladder from Last 3 Months Results * Non-gynecologic cytology (06/05/2025 12:00 AM EDT) Final Diagnosis A. Urine, Voided, [id number]: ATYPICAL UROTHELIAL CELLS PRESENT. Results of UroVysion fluorescence in situ hybridization (FISH) testing: CEP3: Normal CEP7: Normal CEP17: Normal LSI 9p21: Normal Interpretation: Normal profile Controls stained appropriately. Note: The results are intended as a screening device and should be interpreted in association with other clinical and pathological findings. 06/24/2025 11:02 AM EDT [facility] Specimen A Adequacy Satisfactory for evaluation 06/24/2025 11:02 AM EDT [facility] Clinical Information History of bladder neoplasm (malignant) Z85.51 Urine Cytology/FISH (now) [facility] Description A. Urine, Voided, [id number]: Received one ThinPrep slide for cytology and one ThinPrep slide for UroVysion FISH 06/24/2025 11:02 AM [facility] Disclaimer Unless otherwise specified, all tissue is 10% NB formalin fixed and paraffin embedded. Technical pathology services provided by [facility]rology at [address], [place] [address] (CLIA #[id number]/Mary Powell MD, Anthropologist Physical) 06/24/2025 11:02 AM EDT [facility] Urine Urine specimen from urethra / Unknown 06/05/2025 06/12/2025 1:20 PM EDT us Francisco Nino MD LAB CYTOLOGY ORDERABLES F inal Result [facility] [address] [place] [address], [place] [phone] from Last 3 Months Insurance BLUE CROSS - [place] MEDICARE ADVANTAGE Care Teams Industrial X Ray Operator Relationship Specialty Start Date End Date Physician, No Pcp PCP - General 03/03/25
--- OUTSIDE RECORDS SUMMARY | 2025-07-18 13:14 | XMS_ITS | Encounter Summary ---
Author Organization [facility] Address [address] [place] [address] Care Team Providers Care Pulvi Mixer Operator Name Role Phone Physician, No Pcp Primary Care Provider Unavaila ble Encounter Details Date Type Department Care Team (Late st Contact Info) Description 03/03/2025 Lab Requisition [facility] - Main Lab [address] [facility] [facility] 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 Urinary Bladder, tumor: Labeled Bladder tumor . Received in formalin is a 1.1x1.0x0.4cm aggregate of friable, pino-pink tissue fragments, which are filtered through paper and submitted in toto in one cassette, multiple pieces, multiple levels. /al 03/06/2025 2:52 PM EDT [facility] Disclaimer Unless otherwise specified, all tissue is 10% NB formalin fixed and paraffin embedded. Technical pathology services provided by [facility] at [address] [place] [address] [address], [place] [address] (CLIA #[id number]/S shar Powell MD, Host/Hostess Ground) 03/06/2025 2:52 PM EDT [facility] Tissue Urinary bladder structure / Unknown 02/27/2025 03/03/2025 1:30 PM EDT us Francisco Nino MD LAB PATHOLOGY ORDERABLES Final Result [facility] [address] [place] [address], documented in this encounter Visit Diagnoses Diagnosis Neoplasm of uncertain behavior of bladder documented in this encounter Care Teams Pulvi Mixer Operator Relationship Specialty Start Date End Date Physician, No Pcp PCP - General 03/03/25 documented as of this encounter
== END 2025-07-18 14:02 | disposition home or self-care (01) ==
LOC: HO.HMCFM 12:45
PROVIDERS: PCP Internal Medicine; Visit Provider Nurse Practitioner Family
DX: H93.13 Tinnitus, bilateral (principal); F33.0 Major depressive disorder, recurrent, mild; E03.9 Hypothyroidism, unspecified; J45.20 Mild intermittent asthma, uncomplicated; M81.0 Age-related osteoporosis without current pathological fracture

== ENCOUNTER 2025-08-04 16:30 | Outpatient (AMB) | payer MEDICARE, SELFPAY ==
--- NOTE | 2025-08-04 16:27 | A.OFFPC_ITS ---
Intake Visit Reasons: Medication review Intake Note: Medication review. Field Collector Required: No Allergies Penicillins Allergy (Mild, Verified 08/04/25 16:27) vaginal yeast infection Tobacco use date assessed: 08/04/25 Dental Screening Dental Screen Date: 07/18/25 HPI HPI Comments History of Present Illness Details The patient is a 75 year old female with a past medical history of hyopthyroid, asthma, low vitamin d, bladder cancer for follow up telehealth visit BH/Neuro: Relocated from [place]. one year later. Lost two sisters, had to put her dog down. Extremely stress, anxious-she was going to wait until after left eye surgery to start the 10mg prozac but she decided to start it. She has been on it for about 4 weeks-no SE but is not feeling less anxious, calmer as of yet. The reason she was going to wait until after surgery was that before last visit- She had had an episode of vertigo and vision changes when she tried zoloft in the past which was similar to her recent post operative complications from eye surgery. She requests ENT referral for frequent tinnitus Hypothyroid-On levothyroxine Asthma-On arnuity. Cataract surgery 04/02/2025 right eye. Had V1 shingles. Waiting on left eye surgery-scheduled for the end of Jul. She had post operative vertigo, vision changes which have since resolved. MSK: Reports bilateral le neuropathy legs and foot. Unsure of labs. Low back sometimes painful but no acute injury etc. Chronic neck pain, spasm. Recent worsening left shoulder pain, Urologic-Follows with Dr Nino. Every 3 months follow up at present. She had one year history of urinary urgency prior to testing for bladder cancer. She was positive. She has cystoscopy with antineoplastic agent. Acvzoihpqyah-GTK-Xtqtl 2025. [facility] Wants perhaps another opinion. Recommended reclast Mammo-05/2024 Colonoscopy-01/18/2022 ROS see HPI PHYSICAL EXAM: Telehealth [facility] Surgical History Hx of cholecystectomy Family History Mother Lung cancer Depression Sister Depression COPD (chronic obstructive pulmonary disease) Diabetes Brother Heart attack Father Alcohol abuse Cardiovascular disease ESRD (end stage renal disease) HTN (hypertension) Other Chronic mental illness Social History Housing: House Alcohol intake: current Patient Tobacco Use Status: Former Tobacco user Cigarette Packs Per Day: 1 Years Smoked: 15 Packs Per Year: 15 e-Cigarette/Vaping Use: Never Used Second Hand Smoke Exposure: Yes (as a child) service: No Current occupational status: retired Current occupational exposures/hazards: No Cognitive needs: No Hearing needs: No Vision needs: Yes (glasses, just had cataracts) Questionnaire Thrive Questionnaire Date Thrive assessed: 05/19/25 TIGRE-7 AMB Questionnaire TIGRE-7 Date TIGRE - 7 assessed: 05/19/25 Source: Developed by Drs. Nael Elias, Lilo De La Garza, Jaskaran Bryson and colleagues, with an educational russell from [employer]. Physical exam (Primary Care) Tobacco/Smoking Status: Tobacco use Status Tobacco use date assessed 08/04/25 08/04/25 16:29 Patient Tobacco Use Status Former Tobacco user 08/04/25 16:29 e-Cigarette/Vaping Use Never Used 08/04/25 16:29 Thrive Assessment: Date of Thrive Assessment Date Thrive assessed 05/19/25 08/04/25 16:29 Telehealth Telehealth Telehealth Platform: Telephone Location of provider rendering services: practice address Location of patient: address on file Patient Identification confirmed using: Name, : Yes Telehealth method: voice only Patient verbally consented to treatment: Yes Patient verbally consented to billing insurance company: Yes Patient informed of any privacy concerns related to visit: Yes Minutes spent on Phone/Video with Pt.: 25 Coding Level of Care Code Tele Est Pt Level 3 (23377) Diagnoses Mild episode of recurrent major depressive disorder F33.0 Major depression episode severity: mild Tinnitus, bilateral H93.13 Assessment & Plan Assessment & Plan (1) MDD (major depressive disorder), recurrent episode: Code(s): F33.9 - Major depressive disorder, recurrent, unspecified Category: Medical Qualifiers: Major depression episode severity: mild Qualified Code(s): F33.0 - Major depressive disorder, recurrent, mild (2) Tinnitus, bilateral: Code(s): H93.13 - Tinnitus, bilateral Category: Medical Plan 75 year old female for follow up No response yet to prozac-will increase to 20mg daily. If no response whatsover might consider alternate Hypothyroid-stable on levothyroxine Asthma is stable Orders: Referrals Ear/Nose/Throat Referral H93.13 - Tinnitus, bilateral Medications: New Prozac (fluoxetine) 20 mg PO DAILY 90 caps 1RF NS Discontinued fluoxetine (Prozac) Discontinued Reason: Doctor's Order 10 mg PO DAILY 90 caps 1RF
--- OUTSIDE RECORDS SUMMARY | 2025-08-04 21:30 | XMS_ITS | Patient Health Record ---
Author Organization [facility] Address [address] [place] [address] Care Team Providers Care Pinked Edge Sewing Machine Operator Name Role Phone SAMARA ANDRADE, CESAR Primary Care Provider Jo aidaludwinGABRIELA Stearns Unavailable [phone] Allergies No Known Allergies Results Component Value Reference Range Notes Urinalysis Reviewed date:09/17/2024 02:47:49 PM Interpretation: Performing Lab: Notes/Report: NITRITE NEG PH 5.0 PROTEIN TR S.G 1.000 WBC POS GLUCOSE NEG KETONES NEG UROBILINOGEN NEG BILIRUBIN NEG BLOOD MOD Urine Culture, Routine-[id number] 7 Reviewed date:09/19/2024 10:44:59 AM Interpretation: Performing Lab:[facility], [address], [place], Phone - [phone], [facility] Notes/Report: Urine Culture, Routine Final report Result 1 Culture shows less than 10,000 colony forming units of bacteria per milliliter of urine. This colony count is not generally considered to be clinically significant. 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) Active confirmed Problem COVID-19 (559823446) COVID-19 (U07.1) Active confirmed Vital Signs Temperature 97.3 degrees Fahrenheit 09/17/2024 Blood pressure diastolic 86 mm Hg 09/17/2024 Height 62.5 in 09/17/2024 Blood pressure systolic 124 mm Hg 09/17/2024 Weight 183 lbs 09/17/2024 BMI 32.93 kg/m2 09/17/2024 Encounters Encounter Location Date Provider Diagnosis [facility] [place] [address] [address] 09/17/2024 GABRIELA CAGLE Frequency of micturition R35.0 ; Urgency of urination R39.15 and Postmenopausal atrophic vaginitis N95.2 [facility] [place] [address] [address] 09/24/2024 GABRIELA CAGLE Assessments Encounter Date Diagnosis [...] End Date BCBS MEDICARE PPO [address] [place] [address] [id number] YEE HERNANDEZ Self - patient is the insured Medical (General) History Medical History History ICD Code Hypothyroidism, unspecified E03.9 COVID-19 U07.1 Surgical History Surgery Date(Month/Year) Melanoma 2014 Hospitalization History Reason Date(Month/Year) 1 Vaginal Deivery
--- OUTSIDE RECORDS SUMMARY | 2025-08-04 21:30 | XMS_ITS | Encounter Summary ---
Author Organization [facility] Address [address] [place] [address] Care Team Providers Care Rattling Machine Tender Name Role Phone Physician, No Pcp Primary Care Provider Unavaila ble Encounter Details Date Type Department Care Team (Late st Contact Info) Description 12/17/2024 Lab Requisition [facility] - Main Lab [address] [facility] [place] [address] Francisco Nino MD [address] [place] [address] Benign essential microscopic hematuria Social [...] clinical and pathological findings. 01/02/2025 5:26 PM [facility] Addendum electronically signed by Tania Cevallos MD on 01/02/2025 at 5:26 PM Final Diagnosis A. Urine, Voided, ([id number]): Atypical urothelial cells Note: Based upon the cytologic findings, UroVysion testing will be performed, the result to follow in an addendum. 01/02/2025 5:26 PM EST [facility] Clinical Information Benign essential microscopic hematuria R31.1 Urine cytology with reflex UroVysion ([facility]) 01/02/2025 5:26 PM [facility] Gross Description A. Urine, Voided, ([id number]): Received is one ThinPrep slide for cytology. 01/02/2025 5:26 PM [facility] Disclaimer Unless otherwise specified, all tissue is 10% NB formalin fixed and paraffin embedded. Technical pathology services provided by [facility] at [address] [place] [address] (CLIA #[id number]/Mary Powell MD, Thread Grinder) 01/02/2025 5:26 PM [facility] Tissue Urine specimen from urethra / Unknown 12/16/2024 12/17/2024 3:48 PM EST us Francisco Nino MD LAB PATHOLOGY ORDERABLES Edited Result - Final [facility] [address] [place] [address], documented in this encounter Visit Diagnoses Diagnosis Benign essential microscopic hematuria documented in this encounter Care Teams Rattling Machine Tender Relationship Specialty Start Date End Date Physician, No Pcp PCP - General 03/03/25 documented as of this encounter
--- OUTSIDE RECORDS SUMMARY | 2025-08-04 21:30 | XMS_ITS | Encounter Summary ---
Author Organization [facility] Address [address] [place] [address] Care Team Providers Care Educational Fundraising Director Name Role Phone Physician, No Pcp Primary Care Provider Unavaila ble Encounter Details Date Type Department Care Team (Late st Contact Info) Description 06/12/2025 Lab Requisition [facility] - Main Lab [address] [facility] [place] [address] Francisco Nino MD [address] [facility] [address] [place] [address] Personal history of malignant neoplasm [...] AM EDT) Final Diagnosis A. Urine, Voided, [id number]: ATYPICAL UROTHELIAL CELLS PRESENT. Results of UroVysion fluorescence in situ hybridization (FISH) testing: CEP3: Normal CEP7: Normal CEP17: Normal LSI 9p21: Normal Interpretation: Normal profile Controls stained appropriately. Note: The results are intended as a screening device and should be interpreted in association with other clinical and pathological findings. 06/24/2025 11:02 AM EDT [facility]PITAL LAB Specimen A Adequacy Satisfactory for evaluation 06/24/2025 11:02 AM EDT [facility] Clinical Information History of bladder neoplasm (malignant) Z85.51 Urine Cytology/FISH (now) 06/24/2025 11:02 AM EDT [facility] Gross Description A. Urine, Voided, [id number]: Received one ThinPrep slide for cytology and one ThinPrep slide for UroVysion FISH 06/24/2025 11:02 AM EDT [facility] Disclaimer Unless otherwise specified, all tissue is 10% NB formalin fixed and paraffin embedded. Technical pathology services provided by [facility] at [address] [place] [address] [address], [place] [address] (CLIA #[id number]/Mary Powell MD, Garden Equipment Mechanic) 06/24/2025 11:02 AM EDT [facility] Urine Urine specimen from urethra / Unknown 06/05/2025 06/12/2025 1:20 PM EDT us Francisco Nino MD LAB CYTOLOGY ORDERABLES F inal Result [facility] [address] [place] [address], documented in this encounter Visit Diagnoses Diagnosis Personal history of malignant neoplasm of bladder documented in this encounter Care Teams Educational Fundraising Director Relationship Specialty Start Date End Date Physician, No Pcp PCP - General 03/03/25 documented as of this encounter
--- OUTSIDE RECORDS SUMMARY | 2025-08-04 21:30 | XMS_ITS | Encounter Summary ---
Author Organization [facility] Address [address] [place] [address] Care Team Providers Care Sales Associate Cashier Name Role Phone Physician, No Pcp Primary Care Provider Unavaila ble Encounter Details Date Type Department Care Team (Late st Contact Info) Description 02/05/2025 Lab Requisition [facility] - Main Lab [address] [facility] [place] [address] Francisco Nino MD [address] [facility] [address] [place] [address] Gross hematuria Social History Tobacco [...] AM EDT) Final Diagnosis A. Urine, Voided, ([id number]): -ATYPICAL UROTHELIAL CELLS SUSPICIOUS FOR HIGH-GRADE UROTHELIAL CARCINOMA.. Results of UroVysion fluorescence in situ hybridization (FISH) testing: CEP3: Normal CEP7: Normal CEP17: Normal LSI 9p21: Normal Interpretation: Normal profile Controls stained appropriately. Note: The results are intended as a screening device and should be interpreted in association with other clinical and pathological findings. 02/11/2025 5:49 PM EDT [facility] HOSPITAL LAB Clinical Information Gross hematuria R31.0 Urine Cytology/FISH (now) 02/11/2025 5:49 PM EDT [facility] Gross Description A. Urine, Voided, ([id number]): Received one ThinPrep slide for cytology and one ThinPrep slide for UroVysion FISH 02/11/2025 5:49 PM EDT [facility] Disclaimer Unless otherwise specified, all tissue is 10% NB formalin fixed and paraffin embedded. Technical pathology services provided by [facility] at [address], [place] [address] (CLIA #[id number]/Mary Powell MD, Roller Skater) 02/11/2025 5:49 PM EDT [facility] Tissue Urine specimen from urethra / Unknown 01/30/2025 02/05/2025 11:59 AM EDT us Francisco Nino MD LAB PATHOLOGY ORDERABLES Final Result [facility] [address] [place] [address], documented in this encounter Visit Diagnoses Diagnosis Gross hematuria documented in this encounter Care Teams Sales Associate Cashier Relationship Specialty Start Date End Date Physician, No Pcp PCP - General 03/03/25 documented as of this encounter
--- OUTSIDE RECORDS SUMMARY | 2025-08-04 21:30 | XMS_ITS | Continuity of Care Document ---
Author Organization [facility] Address [address] [place] [address] Phone [phone] Care Team Providers Care Delivery Table Operator Name Role Phone Dada Giang MD Care Team Information Rec eiver [phone] Problems Active Problems Provider Date Osteoporosis PAULETTE [...] Medications SIG Qnty Indications Ordering Provider Date [id number] Tablets Francisco Nino MD Arnuity Hoghicp545izi/Act Aerosol Dada Giang MD Olzaraale27khc Tablets Unknown Levothyroxine [id number] Tablets Dada Giang MD Vital Signs Date [...] D deficiency has been defined by the Hubbard of Medicine and an Endocrine Society practice guideline as a level of serum 25-OH vitamin D less than 20 ng/mL (1,2). The Endocrine Society went on to further define vitamin D insufficiency as a level between 21 and 29 ng/mL (2). 1. IOM ([employer] of Medicine). 2010. Dietary reference intakes for [...] measured NTx value is <or=38 nM BCE/mM [employer], or NTx has decreased >or=30% from baseline.[1] [...]
--- OUTSIDE RECORDS SUMMARY | 2025-08-04 21:30 | XMS_ITS | Clinical Summary ---
Author Organization [address] [facility] Address [address] [place] [address] Phone Care Team Providers Care Pest Management Supervisor Name Role Phone Physician, No Pcp Primary Care Provider Unavaila ble Encounters Date Type Department Care Team Description 06/12/2025 Lab Requisition [facility] - Main Lab [address] [place] [address] Francisco Nino MD Personal history [...] 2001 Zoster Vaccines (1 of 2) 2001 Depression Screening 11/20/2024 Colorectal Cancer Screening: Colonoscopy 12/18/2024 Falls Risk Assessment 12/18/2024 Hepatitis C Screening 12/18/2024 Medicare Annual Wellness Visit 12/18/2024 Osteoporosis Screening (Bone Density Screening) 12/18/2024 Social Influencers of Health Screening 12/18/2024 COVID-19 Vaccine ( - 2023-2 5 season) 2025 Influenza Vaccine (#1) 2025 RSV Immunization Adult [...] AM EDT) Final Diagnosis A. Urine, Voided, [id number]: ATYPICAL UROTHELIAL CELLS PRESENT. Results of UroVysion fluorescence in situ hybridization (FISH) testing: CEP3: Normal CEP7: Normal CEP17: Normal LSI 9p21: Normal Interpretation: Normal profile Controls stained appropriately. Note: The results are intended as a screening device and should be interpreted in association with other clinical and pathological findings. 06/24/2025 11:02 AM EDT [facility] Specimen A Adequacy Satisfactory for evaluation 06/24/2025 11:02 AM EDT [facility] Clinical Information History of bladder neoplasm (malignant) Z85.51 Urine Cytology/FISH (now) [facility] Gross Description A. Urine, Voided, [id number]: Received one ThinPrep slide for cytology and one ThinPrep slide for UroVysion FISH 06/24/2025 11:02 AM [facility] Disclaimer Unless otherwise specified, all tissue is 10% NB formalin fixed and paraffin embedded. Technical pathology services provided by [facility] at [address], [place] [address] (CLIA #[id number]/Mary Powell MD, Text Transcriber) 06/24/2025 11:02 AM EDT [facility] Urine Urine specimen from urethra / Unknown 06/05/2025 06/12/2025 1:20 PM EDT us Francisco Nino MD LAB CYTOLOGY ORDERABLES F inal Result [facility] ([facility] [address] [place] [address], [place] [phone] from Last 3 Months Insurance [employer] - [place] MEDICARE ADVANTAGE Care Teams Pest Management Supervisor Relationship Specialty Start Date End Date Physician, No Pcp PCP - General 03/03/25
--- OUTSIDE RECORDS SUMMARY | 2025-08-04 21:30 | XMS_ITS | Clinical Summary ---
Author Organization [facility] Address [address] [address] Phone Care Team Providers Care Internet Manager Name Role Phone Dada Montesinos MD Primary Care Provider [phone] Allergies Active Allergy Reactions Criticality Noted Date Comments Penicillin 08/13/2024 Yeast Infections Medications levothyroxine (SYNTHROID, LEVOTHROID) 50 MCG tablet Take by mouth. 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 Asthma 04/23/2024 Neuropathy 04/23/2024 Social History [...] (2 of 2 - PCV) 08/31/2021 08/31/2020 BLOOD PRESSURE 02/10/2025 08/13/2024 INFLUENZA VACCINE (#1) 2025 08/29/2023 COVID-19 VACCINE (1 - 2023-2 5 season) 2025 HEPATITIS A VACCINES Aged Out No long [...] [employer] [place] [address] [place] [address] [address] [place] [address] MEDIC[address]PO [address] [place] [place] [address] MEDICARE PPO BLUE REPLACEMENT Care Teams Internet Manager Relationship Specialty Start Date End Date Dada Montesinos MD [address] [place] [address] PCP - General Internal Medicine 08/13/24 Additional Source Comments The information contained in this document represents components of the legal health record. It is not the complete legal health record.[facility]
--- OUTSIDE RECORDS SUMMARY | 2025-08-04 21:30 | XMS_ITS | Encounter Summary ---
Author Organization Address [address] [place] [address] Care Team Providers Care Panel Edge Painter Name Role Phone Physician, No Pcp Primary Care Provider Unavaila ble Encounter Details Date Type Department Care Team (Late st Contact Info) Description 03/03/2025 Lab Requisition [facility] - Main Lab [address] [place] [address] Francisco Nino MD [address] [facility] [address] [place] [address] Neoplasm of uncertain behavior of [...] situ: Not identified 03/06/2025 2:52 PM EDT [facility] [place] [facility] Clinical Information Z85.51 H/O bladder neoplasm (malignant) D41.1 [id number] 03/06/2025 2:52 PM EDT [facility] Gross Description A. Urinary Bladder, tumor: Labeled Bladder tumor . Received in formalin is a 1.1x1.0x0.4cm aggregate of friable, pino-pink tissue fragments, which are filtered through paper and submitted in toto in one cassette, multiple pieces, multiple levels. /al 03/06/2025 2:52 PM EDT [facility] Disclaimer Unless otherwise specified, all tissue is 10% NB formalin fixed and paraffin embedded. Technical pathology services provided by [facility] at [address] [place] [address] [address], [place] [address] (CLIA #[id number]/S shar Powell MD, Assemblies And Installations Inspector) 03/06/2025 2:52 PM EDT [facility] Tissue Urinary bladder structure / Unknown 02/27/2025 03/03/2025 1:30 PM EDT us Francisco Nino MD LAB PATHOLOGY ORDERABLES Final Result [facility] [address] [place] [address], documented in this encounter Visit Diagnoses Diagnosis Neoplasm of uncertain behavior of bladder documented in this encounter Care Teams Panel Edge Painter Relationship Specialty Start Date End Date Physician, No Pcp PCP - General 03/03/25 documented as of this encounter
== END 2025-08-04 17:05 | disposition home or self-care (01) ==
LOC: HO.HMCFM 16:30
PROVIDERS: PCP Internal Medicine; Visit Provider Internal Medicine
DX: F33.0 Major depressive disorder, recurrent, mild (principal); H93.13 Tinnitus, bilateral

== ENCOUNTER 2025-09-05 10:10 | Outpatient (AMB) | payer MEDICARE, SELFPAY ==
--- NOTE | 2025-09-05 10:36 | MHC.PC.OV ---
Vital Signs 09/05/25 10:42 Height 5 ft 1.97 in Weight 183 lb 2 oz BMI 33.5 BP 112/78 Blood Pressure Location Rt brachial Position Sitting Respiration 16 Pulse 59 Pulse Source Pulse Oximeter Temp 98.1 F Temp Source Oral Pulse Oximetry (%) 96 Intake Visit Reasons: 6 weeks fU prozac Intake Note: follow up Vocational Training Teacher Required: No Allergies Penicillins Allergy (Mild, Verified 09/05/25 10:40) vaginal yeast infection Tobacco use date assessed: 08/04/25 Dental Screening Dental Screen Date: 07/18/25 HPI HPI Comments History of Present Illness Details The patient is a 75 year old female with a past medical history of hyopthyroid, asthma, low vitamin d, bladder cancer for follow up telehealth visit BH/Neuro: Relocated from [place]. one year later. Lost two sisters, had to put her dog down. She was extremely stressed, anxious-she is currently on prozac 20mg upped from 10mg doing well, thinks she could benefit from increase to 30 Saw ENT for frequent tinnitus Hypothyroid-On levothyroxine. Asthma-On arnuity. Cataract surgery 04/02/2025 right eye. Had V1 shingles. Then had left eye surgery at end of Jul. She had post operative vertigo, vision changes which have since resolved (after right) MSK: Reports bilateral le neuropathy legs and foot. Unsure of labs. Low back sometimes painful but no acute injury etc. Chronic neck pain, spasm. Recent worsening left shoulder pain, Urologic-Follows with Dr Nino. Every 3 months follow up at present. She had one year history of urinary urgency prior to testing for bladder cancer. She was positive. She has cystoscopy with antineoplastic agent. Lcnnpsxyczcx-FPY-Mqwyb 2025. [facility] Recommended reclast. Requests referral Mammo-05/2024 Colonoscopy-01/18/2022 09/05/2025 [employer] Flu, RSV ROS see HPI PHYSICAL EXAM: GENERAL: Alert and oriented x 3. NAD EYES: EOMI. Anicteric. HENT: Moist mucous membranes. No scleral icterus. No cervical lymphadenopathy. LUNGS: Clear to auscultation bilaterally. CARDIOVASCULAR: Regular rate and rhythm. No murmur. No JVD. ABDOMEN: Soft, non-tender +bs EXTREMITIES: No edema. Non-tender. SKIN: No rashes or lesions. Warm. NEUROLOGIC: No focal neurological deficits. CN II-XII grossly intact PSYCHIATRIC: Cooperative. Appropriate mood and affect [facility] Medical History Cataract (lens) fragments in eye following cataract surgery, left eye Surgical History Hx of cholecystectomy Family History Mother Lung cancer Depression Sister Depression COPD (chronic obstructive pulmonary disease) Diabetes Brother Heart attack Father Alcohol abuse Cardiovascular disease ESRD (end stage renal disease) HTN (hypertension) Other Chronic mental illness Social History Housing: House Alcohol intake: current Patient Tobacco Use Status: Former Tobacco user Cigarette Packs Per Day: 1 Years Smoked: 15 Packs Per Year: 15 e-Cigarette/Vaping Use: Never Used Second Hand Smoke Exposure: Yes (as a child) service: No Current occupational status: retired Current occupational exposures/hazards: No Cognitive needs: No Hearing needs: No Vision needs: Yes (glasses, just had cataracts) Questionnaire Thrive Questionnaire Date Thrive assessed: 05/19/25 I am a: Patient What is your living situation today?: I have a steady place to live Within the past 12 months, did the food you bought not last and you didn't have the money to get more?: Never true Within the past 12 months, did you worry whether your food would run out before you got money to buy more?: Never true Do you have trouble paying for medicines?: No Do you have trouble getting transportation to medical appointments?: No Do you have trouble paying your heating and electricity bill?: No Do you have trouble taking care of your child, family member or friend?: No Do you have trouble with day-to-day activities such as bathing, preparing meals, shopping, managing finances, etc.?: No Are you currently unemployed and looking for a job?: No Are you interested in more education?: No Please select the resources that you would like help with: None Currently or been in a relationship where the following occur: Controlled Emotionally THRIVE Score: 1 TIGRE-7 AMB Questionnaire TIGRE-7 Date TIGRE - 7 assessed: 05/19/25 Source: Developed by DrsIsis Elias, Lilo De La Garza, Jaskaran Bryson and colleagues, with an educational russell from [employer]. Physical exam (Primary Care) Vital Signs: Last Vital Signs Temp 98.1 F 09/05/25 10:42 Pulse 59 09/05/25 10:42 Resp 16 09/05/25 10:42 BP 112/78 09/05/25 10:42 Pulse Ox 96 09/05/25 10:42 BMI result Body Mass Index 33.5 Tobacco/Smoking Status: Tobacco use Status Tobacco use date assessed 08/04/25 09/05/25 10:37 Patient Tobacco Use Status Former Tobacco user 09/05/25 10:37 e-Cigarette/Vaping Use Never Used 09/05/25 10:37 Thrive Assessment: Date of Thrive Assessment Date Thrive assessed 05/19/25 09/05/25 10:37 Currently or been in a relationship where the following occur: Controlled Emotionally Coding Level of Care Code Est Pt Level 4 (40611) Diagnoses Mild episode of recurrent major depressive disorder F33.0 Major depression episode severity: mild Acquired hypothyroidism E03.9 Hypothyroidism type: acquired Mild intermittent asthma in adult without complication J45.20 Assessment & Plan Assessment & Plan (1) MDD (major depressive disorder), recurrent episode: Code(s): F33.9 - Major depressive disorder, recurrent, unspecified Category: Medical Qualifiers: Major depression episode severity: mild Qualified Code(s): F33.0 - Major depressive disorder, recurrent, mild (2) Hypothyroid: Code(s): E03.9 - Hypothyroidism, unspecified Category: Medical Qualifiers: Hypothyroidism type: acquired Qualified Code(s): E03.9 - Hypothyroidism, unspecified (3) Mild intermittent asthma in adult without complication: Code(s): J45.20 - Mild intermittent asthma, uncomplicated Category: Medical Plan 75 year old for follow up BH-increase prozac to 30mg daily. Doing better Asthma is stable Rash-scalp, forehead. Discontinue new shampoo. kenalog ordered Medications: New fluoxetine Take one tab oral once daily with 20mg cap for total daily dose of 30mg daily 10 mg PO DAILY 90 caps 3RF triamcinolone acetonide 0.1% 1 appl topical BID 80 grams 1RF
[2025-09-05 10:42] VITALS: BP 112/78; PULSE 59; RESP 16; TEMP 36.7; O2SAT 96; BMI 33.5
--- OUTSIDE RECORDS SUMMARY | 2025-09-05 11:59 | XMS_ITS | Encounter Summary ---
Author Organization [facility] [address] Address [address] [place] [address] Care Team Providers Care Loan Administrator Name Role Phone Physician, No Pcp Primary Care Provider Unavaila ble Encounter Details Date Type Department Care Team (Late st Contact Info) Description 12/17/2024 Lab Requisition [facility] - Main Lab [address] [facility] [place] [address] Francisco Nino MD [address] [place] [address] Benign essential microscopic hematuria Social [...] clinical and pathological findings. 01/02/2025 5:[address] [facility] Addendum electronically signed by Tania Cevallos MD on 01/02/2025 at 5:26 PM Final Diagnosis A. Urine, Voided, ([id number]): Atypical urothelial cells Note: Based upon the cytologic findings, UroVysion testing will be performed, the result to follow in an addendum. 01/02/2025 5:26 PM EST [facility] Clinical Information Benign essential microscopic hematuria R31.1 Urine cytology with reflex UroVysion ([facility]) 01/02/2025 5:[address] [facility] Gross Description A. Urine, Voided, ([id number]): Received is one ThinPrep slide for cytology. 01/02/2025 5:[address] [facility] Disclaimer Unless otherwise specified, all tissue is 10% NB formalin fixed and paraffin embedded. Technical pathology services provided by [facility] [address] [facility] [address] [place] [address] (CLIA #[id number]/Mary Powell MD, Senior National Account Manager) 01/02/2025 5:[address] [facility] Tissue Urine specimen from urethra / Unknown 12/16/2024 12/17/2024 3:48 PM EST us Francisco Nino MD LAB PATHOLOGY ORDERABLES Edited Result - Final [facility] [address] [place] [address], documented in this encounter Visit Diagnoses Diagnosis Benign essential microscopic hematuria documented in this encounter Care Teams Loan Administrator Relationship Specialty Start Date End Date Physician, No Pcp PCP - General 03/03/25 documented as of this encounter
--- OUTSIDE RECORDS SUMMARY | 2025-09-05 11:59 | XMS_ITS | Patient Health Record ---
Author Organization [facility] Address [address] [facility] [address] [facility] [address] [place] [address] Care Team Providers Care Head Banquet Waitress Name Role Phone SAMARA ANDRADE, CESAR Primary Care Provider Jo aidaludwinGABRIELA Stearns Unavailable [phone] Allergies No Known Allergies Results Component Value Reference Range Notes PDF Report Reviewed date:09/19/2024 08:51:31 AM Interpretation: Performing Lab:[facility], [address], [address], [place], Phone - [phone], Director - [facility] Notes/Report: Urine Culture, Routine-[id number] Reviewed date:09/19/2024 10:44:59 AM Interpretation: Performing Lab:[facility], [address], [address], [place], Phone - [phone], Director - [facility] Notes/Report: Urine Culture, Routine Final report Result [...] Status Risk Notes Problem Postmenopausal atrophic vaginitis (97892400) Postmenopausal atrophic vaginitis (N95.2) Active confirmed Problem COVID-19 (311131069) COVID-19 (U07.1) Active confirmed Vital Signs Temperature 97.3 degrees Fahrenheit 09/17/2024 Blood pressure diastolic 86 mm Hg 09/17/2024 Height 62.5 in 09/17/2024 Blood pressure systolic 124 mm Hg 09/17/2024 Weight 183 lbs 09/17/2024 BMI 32.93 kg/m2 09/17/2024 Encounters Encounter Location Date Provider Diagnosis [facility] [employer] [address] [address] 09/17/2024 GABRIELA CAGLE Frequency of micturition R35.0 ; Urgency of urination R39.15 and Postmenopausal atrophic vaginitis N95.2 [facility] [employer] [address] [address] 09/24/2024 GABRIELA CAGLE Assessments Encounter Date Diagnosis [...] End Date BCBS MEDICARE PPO [address] [place] [address] [id number] YEE HERNANDEZ Self - patient is the insured Medical (General) History Medical History History ICD Code Hypothyroidism, unspecified E03.9 COVID-19 U07.1 Surgical History Surgery Date(Month/Year) Melanoma 2014 Hospitalization History Reason Date(Month/Year) 1 Vaginal Deivery
--- OUTSIDE RECORDS SUMMARY | 2025-09-05 11:59 | XMS_ITS | Clinical Summary ---
Author Organization [facility] Address [address] [address] Phone Care Team Providers Care Rubber Grinder Name Role Phone Dada Montesinos MD Primary Care Provider [phone] Allergies Active Allergy Reactions Criticality Noted Date [...] FOBT 02/04/1996 SIGMOIDOSCOPY 02/04/1996 VIRTUAL COLONOSCOPY 02/04/1996 RSV VACCINE (1 - Risk 50-74 years 1-dose series) 2001 ZOSTER VACCINES (1 of 2) 2001 OSTEOPOROSIS SCREENING INITI AL (ONE-TIME) 02/04/2016 PNEUMOCOCCAL VACCINES (50+ y ears) (2 of 2 - PCV) 08/31/2021 08/31/2020 BLOOD PRESSURE 02/10/2025 08/13/2024 INFLUENZA VACCINE (#1) 2025 08/29/2023 COVID-19 VACCINE (1 - 2024-2 6 season) 2025 HEPATITIS A VACCINES Aged Out [...] BLUE [place]OSS [place]IC[place] [address] [place] [address] [address] [address] [place] [address] [address]IC[address] [place] [address] [place] [address] MEDICARE PPO BLUE REPLACEMENT Care Teams Rubber Grinder Relationship Specialty Start Date End Date Dada Montesinos MD [address] [place] [address] PCP - General Internal Medicine 08/13/24 Additional Source Comments The information contained in this document represents components of the legal health record. It is not the complete legal health record.[facility]
--- OUTSIDE RECORDS SUMMARY | 2025-09-05 11:59 | XMS_ITS | Encounter Summary ---
Author Organization [facility] Address [address] [place] [address] Care Team Providers Care Blast Furnace Helper Name Role Phone Physician, No Pcp Primary Care Provider Unavaila ble Encounter Details Date Type Department Care Team (Late st Contact Info) Description 02/05/2025 Lab Requisition [facility] - Main Lab [address] [facility] [place] [address] Francisco Nino MD [address] [facility] [address] [place] [address] Gross hematuria Social History Tobacco [...] AM EDT) Final Diagnosis A. Urine, Voided, ([id number]): -ATYPICAL UROTHELIAL CELLS SUSPICIOUS FOR HIGH-GRADE UROTHELIAL CARCINOMA.. Results of UroVysion fluorescence in situ hybridization (FISH) testing: CEP3: Normal CEP7: Normal CEP17: Normal LSI 9p21: Normal Interpretation: Normal profile Controls stained appropriately. Note: The results are intended as a screening device and should be interpreted in association with other clinical and pathological findings. 02/11/2025 5:49 PM EDT [facility] Clinical Information Gross hematuria R31.0 Urine Cytology/FISH (now) 02/11/2025 5:[address] [facility] Gross Description A. Urine, Voided, ([id number]): Received one ThinPrep slide for cytology and one ThinPrep slide for UroVysion FISH 02/11/2025 5:[address] [facility] Disclaimer Unless otherwise specified, all tissue is 10% NB formalin fixed and paraffin embedded. Technical pathology services provided by [facility] [address] [address] [facility], [place] [address] (CLIA #[id number]/Mary Powell MD, Contracting Specialist) 02/11/2025 5:[address] [facility] Tissue Urine specimen from urethra / Unknown 01/30/2025 02/05/2025 11:59 AM EDT us Francisco Nino MD LAB PATHOLOGY ORDERABLES Final Result [facility]) [facility] [address] [place] [address], documented in this encounter Visit Diagnoses Diagnosis Gross hematuria documented in this encounter Care Teams Blast Furnace Helper Relationship Specialty Start Date End Date Physician, No Pcp PCP - General 03/03/25 documented as of this encounter
--- OUTSIDE RECORDS SUMMARY | 2025-09-05 12:00 | XMS_ITS | Encounter Summary ---
Author Organization [facility] Address [address] [place] [address] Care Team Providers Care Structural Technician Name Role Phone Physician, No Pcp Primary Care Provider Unavaila ble Encounter Details Date Type Department Care Team (Late st Contact Info) Description 06/12/2025 Lab Requisition [facility] - Main Lab [address] [facility] [place] [address] Francisco Nino MD [address] [facility] [address] [place] [address] Personal history of malignant neoplasm [...] AM EDT) Final Diagnosis A. Urine, Voided, [id number]: ATYPICAL UROTHELIAL CELLS PRESENT. Results of UroVysion fluorescence in situ hybridization (FISH) testing: CEP3: Normal CEP7: Normal CEP17: Normal LSI 9p21: Normal Interpretation: Normal profile Controls stained appropriately. Note: The results are intended as a screening device and should be interpreted in association with other clinical and pathological findings. 06/24/2025 11:02 AM EDT [facility] Specimen A Adequacy Satisfactory for evaluation 06/24/2025 11:02 AM EDT [facility] Clinical Information History of bladder neoplasm (malignant) Z85.51 Urine Cytology/FISH (now) 06/24/2025 11:02 AM EDT [facility] Gross Description A. Urine, Voided, [id number]: Received one ThinPrep slide for cytology and one ThinPrep slide for UroVysion FISH 06/24/2025 11:02 AM EDT [facility] Disclaimer Unless otherwise specified, all tissue is 10% NB formalin fixed and paraffin embedded. Technical pathology services provided by [facility] at [address] [place] [address] [address], [place] [address] (CLIA #[id number]/Mary Powell MD, Weed Burner) 06/24/2025 11:02 AM EDT [facility] Urine Urine specimen from urethra / Unknown 06/05/2025 06/12/2025 1:20 PM EDT us Francisco Nino MD LAB CYTOLOGY ORDERABLES F inal Result [facility] [address] [place] [address], documented in this encounter Visit Diagnoses Diagnosis Personal history of malignant neoplasm of bladder documented in this encounter Care Teams Structural Technician Relationship Specialty Start Date End Date Physician, No Pcp PCP - General 03/03/25 documented as of this encounter
--- OUTSIDE RECORDS SUMMARY | 2025-09-05 12:00 | XMS_ITS | Clinical Summary ---
Author Organization [address] [facility] Address [address] [place] [address] Phone Care Team Providers Care Chemistry Laboratory Technician Name Role Phone Physician, No Pcp Primary Care Provider Unavaila ble Encounters Date Type Department Care Team Description 06/12/2025 Lab Requisition [facility] - Main Lab [address] [place] [address] Francisco Nino MD Personal history [...] Last Done Comments Breast Cancer Screening 1950 Colorectal Cancer Screening: Colonoscopy 1950 DTaP,Tdap,and Td Vaccines (1 - Tdap) 1970 RSV Immunization Adult Patients (1 - Risk 50-74 years 1-dose series) 2001 Zoster Vaccines (1 of 2) 2001 Pneumococcal Vaccine: 50+ Years (2 of 2 - PCV) 08/31/2021 08/31/2020 Depression Screening 11/20/2024 Cholesterol Screening (Lipid Panel) 12/18/2024 Falls Risk Assessment 12/18/2024 Hepatitis C Screening 12/18/2024 Medicare Annual Wellness Visit 12/18/2024 Osteoporosis Screening (Bone Density Screening) 12/18/2024 Social Influencers of Health Screening 12/18/2024 COVID-19 Vaccine (1 - 2023-2 5 season) 2025 Influenza Vaccine (#1) 2025 , 08/29/2023, 10/07/2022 Hypertension/CHF/CAD Annual BMP Blood Test 08/21/2025 HIB Vaccines Aged Out No longer eligi [...] to complete this topic RSV Immunization Patients Under 20 months Aged Out No longer eligible [...] AM EDT) Final Diagnosis A. Urine, Voided, [id number]: ATYPICAL UROTHELIAL CELLS PRESENT. Results of UroVysion fluorescence in situ hybridization (FISH) testing: CEP3: Normal CEP7: Normal CEP17: Normal LSI 9p21: Normal Interpretation: Normal profile Controls stained appropriately. Note: The results are intended as a screening device and should be interpreted in association with other clinical and pathological findings. 06/24/2025 11:02 AM EDT [facility] Specimen A Adequacy Satisfactory for evaluation 06/24/2025 11:02 AM EDT [facility]) [facility] Clinical Information History of bladder neoplasm (malignant) Z85.51 Urine Cytology/FISH (now) 06/24/2025 11:02 AM EDT [facility] ([facility] Gross Description A. Urine, Voided, [id number]: Received one ThinPrep slide for cytology and one ThinPrep slide for UroVysion FISH 06/24/2025 11:02 AM EDT [facility] Disclaimer Unless otherwise specified, all tissue is 10% NB formalin fixed and paraffin embedded. Technical pathology services provided by [facility] at [address], [place] [address] (CLIA #[id number]/Mary Powell MD, Account Executive Sales Representative) 06/24/2025 11:02 AM EDT [facility] Urine Urine specimen from urethra / Unknown 06/05/2025 06/12/2025 1:20 PM EDT Francisco Nino MD LAB CYTOLOGY ORDERABLES F inal Result [facility] [address] [place] [address], from Last 3 Months Insurance BLUE CROSS - [place] MEDICARE ADVANTAGE Care Teams Chemistry Laboratory Technician Relationship Specialty Start Date End Date Physician, No Pcp PCP - General 03/03/25
--- OUTSIDE RECORDS SUMMARY | 2025-09-05 12:00 | XMS_ITS | Continuity of Care Document ---
Author Organization [facility] Address [address] [place] [address] Phone [phone] Care Team Providers Care Forensic Scientist Name Role Phone Dada Giang MD Care Team Information Rec eiver [phone] Problems Active Problems Provider Date Osteoporosis PAULETTE [...] Medications SIG Qnty Indications Ordering Provider Date [id number] Tablets Francisco Nino MD Arnuity [id number]/Act Aerosol Dada Giang MD [id number] Tablets Unknown Levothyroxine [id number] Tablets Dada Giang MD Vital Signs Date [...] D deficiency has been defined by the [place] of Medicine and an Endocrine Society practice guideline as a level of serum 25-OH vitamin D less than 20 ng/mL (1,2). The Endocrine Society went on to further define vitamin D insufficiency as a level between 21 and 29 ng/mL (2). 1. IOM ([place] of Medicine). 2010. Dietary reference intakes for [...] measured NTx value is <or=38 nM BCE/mM MOTOR EXPRESS CLERK, or NTx has decreased >or=30% from baseline.[1] [...]
--- OUTSIDE RECORDS SUMMARY | 2025-09-05 12:00 | XMS_ITS | Encounter Summary ---
Author Organization [facility] Address [address] [place] [address] Care Team Providers Care Finance Lecturer Name Role Phone Physician, No Pcp Primary Care Provider Unavaila ble Encounter Details Date Type Department Care Team (Late st Contact Info) Description 03/03/2025 Lab Requisition [facility] - Main Lab [address] [place] [address] Francisco Nino MD [address] [facility] [address] [place] [address] Neoplasm of uncertain behavior of [...] situ: Not identified 03/06/2025 2:52 PM EDT [facility] [place] [facility] Clinical Information Z85.51 H/O bladder neoplasm (malignant) D41.1 [id number] 03/06/2025 2:[address] [facility] Gross Description A. Urinary Bladder, tumor: Labeled Bladder tumor . Received in formalin is a 1.1x1.0x0.4cm aggregate of friable, pino-pink tissue fragments, which are filtered through paper and submitted in toto in one cassette, multiple pieces, multiple levels. /al 03/06/2025 2:[address] [facility] Disclaimer Unless otherwise specified, all tissue is 10% NB formalin fixed and paraffin embedded. Technical pathology services provided by [facility] at [address] [place] [address] [address], [place] [address] (CLIA #[id number]/S shar Powell MD, Unpaid Intern) 03/06/2025 2:[address] [facility] Tissue Urinary bladder structure / Unknown 02/27/2025 03/03/2025 1:30 PM EDT us Francisco Nino MD LAB PATHOLOGY ORDERABLES Final Result [facility] [address] [place] [address], documented in this encounter Visit Diagnoses Diagnosis Neoplasm of uncertain behavior of bladder documented in this encounter Care Teams Finance Lecturer Relationship Specialty Start Date End Date Physician, No Pcp PCP - General 03/03/25 documented as of this encounter
== END 2025-09-05 11:34 | disposition home or self-care (01) ==
LOC: HO.HMCFM 10:10
PROVIDERS: PCP Internal Medicine; Visit Provider Internal Medicine
DX: F33.0 Major depressive disorder, recurrent, mild (principal); E03.9 Hypothyroidism, unspecified; J45.20 Mild intermittent asthma, uncomplicated

== ENCOUNTER → 2025-09-05 10:10 | Outpatient (BNVA) | payer MEDICARE, SELFPAY | PROVIDERS: PCP Internal Medicine; Visit Provider Internal Medicine | DX: F33.0 Major depressive disorder, recurrent, mild (principal); E03.9 Hypothyroidism, unspecified; J45.20 Mild intermittent asthma, uncomplicated; R21 Rash and other nonspecific skin eruption; M81.0 Age-related osteoporosis without current pathological fracture; Z79.899 Other long term (current) drug therapy | CPT/HCPCS: 99212 ==